=== PATIENT | female | born 1990 | race Caucasian/White ===

== ENCOUNTER → 2016-12-27 | Outpatient (CLI) | payer OTHER ==
[~2016-12-27] MED LIST: LAMO150 PO; LEXA20TA PO
[2016-12-27 10:42] LABS: BLOOD, URINE NEG (NEG); GLUCOSE,URINE NEG (NEG); HYALINE CAST, URINE 1 /lpf (RARE); KETONE, URINE NEG (NEG); NITRITE,URINE NEG (NEG); PH, URINE 6.5 (5.0-8.5); URINE COLOR COLORLESS (YELLW/STRAW)
[2016-12-27 10:44] LABS: AUTOMATED NEUTROPHIL # 5.8 TH/MM3 (1.8-7.7); BASOPHIL % 0.5 % (0.0-2.0); EOSINOPHIL # 0.2 TH/MM3 (0-0.4); EOSINOPHIL % 2.2 % (0.0-4.0); HEMATOCRIT 41.2 % (35.0-46.0); HEMO FLAGS DIFF FINAL; LYMPH % 27.1 % (9.0-44.0); LYMPHOCYTE # 2.5 TH/MM3 (1.0-4.8); MEAN CELL VOLUME 91.1 FL (80.0-100.0); MEAN CORPUSCULAR HEMOGLOBIN 30.3 PG (27.0-34.0); MEAN CORPUSCULAR HGB CONC 33.2 % (32.0-36.0); MONO % 7.4 % (0.0-8.0); NEUT % 62.8 % (16.0-70.0); PLATELET COUNT 366 TH/MM3 (150-450); RED BLOOD COUNT 4.52 MIL/MM3 (4.00-5.30); RED CELL DISTRIBUTION WIDTH 12.4 % (11.6-17.2); WHITE BLOOD COUNT 9.2 TH/MM3 (4.0-11.0)
[2016-12-27 11:07] LABS: ANION GAP 6 MEQ/L (5-15); BICARBONATE 29.5 MEQ/L (21.0-32.0); BLOOD UREA NITROGEN 14 MG/DL (7-18); CHLORIDE 102 MEQ/L (98-107); GLOMERULAR FILTRATION RATE 100 ML/MIN (>89); GLUCOSE,FASTING 81 MG/DL (74-99); POTASSIUM 3.8 MEQ/L (3.5-5.1); SODIUM (NA) 137 MEQ/L (136-145)
[2016-12-27 11:11] LABS: BHCG SCREEN QUALITATIVE LESS THAN 1 MIU/ML (0-5)
== END ==
LOC: CPRE 10:04
PROVIDERS: ATTEND Obstetrics & Gynecology
DX: Z01.812 Encounter for preprocedural laboratory examination (principal); R10.2 Pelvic and perineal pain
CPT/HCPCS: 36415; 80048; 81001; 84703; 85025; 86850; 86900; 86901

== ENCOUNTER → 2016-12-29 | Day surgery (SDC) | payer OTHER ==
--- NOTE | 2016-12-27 21:10 | MH ---
cc: LYNNE LI DATE OF ADMISSION: 12/29/2016 DATE OF : 1990 CHIEF COMPLAINT Persistent right lower quadrant pain, known history of endometriosis status post RSO. HISTORY OF PRESENT ILLNESS: The patient is a 26 year-old single white female, 0, with LMP 12/24/16 on Lexapro. She is scheduled for laparoscopy on morning. This will be her third laparoscopy. She is status post right salpingo-oophorectomy. She is known to have endometriosis. She has had a recurrence of pain in this region but it is non-cyclical. It is every day, although it is intermittent. It can be between 4 and 10. It is not worse when she is on her menses. It is not affected by bowel or bladder habits. There is no left-sided pain. She is currently on her menses now. She has been on Lupron much of her childhood for precocious puberty but never for endometriosis. She is not on any suppressive therapy with control pills at this time. She has had no recent colds or infections. 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 She would like to have an evaluation before she gets back to a new job and has difficulty taking time off for a laparoscopy. PHYSICAL EXAMINATION: She is a well-developed, well-nourished white female in no acute distress. She is 5'1". VITAL SIGNS: Blood pressure is 122/66. She has no thyroid enlargement. LUNGS: Clear. HEART: Heart rate is regular. ABDOMEN: Benign. She has no CVA tenderness. No lymphadenopathy. No tenderness elicited with external exam at the site of discomfort. No incisional hernias. Her perineum is estrogenized. Her vault is elevated. Cervix is nulliparous. Uterus is anteverted, mobile, nontender. The left ovary is unremarkable. There is no nodularity on rectovaginal exam. IMPRESSION: Persistent right lower quadrant tenderness, non-cyclic in nature in a patient known to have endometriosis and status post RSO. This could either be recurrence of atypical endometriosis or pelvic adhesions due to her previous surgeries. PLAN: The plan is to proceed with a diagnostic laparoscopy and remove adhesions or endometriosis, or document the absence of both. The risks, benefits, expectations have been described. She understands we may not find pathology to treat. She understands there may be pathology that we choose not to treat at the time. She understands that we could have problems with damage to bowel, bladder, blood vessels, complications of medication and anesthesia. She is scheduled for morning, has signed consents and desires to proceed. MD BETO Mejias/LANDRY /10:44 AM /8:46 PM
[~2016-12-29] VITALS: Ht 154.9 cm; Wt 68.2 kg
[~2016-12-29] MED LIST changes: +*morphine SULFATE 8 MG/ML PERIprocedure ONLY ONE; +ACETAMINOPHEN 1000 MG/100 ML 100 ML IV ONE; +BUPIVACAINE/EPINEPHRINE 0.5% 50 ML VIAL ONE; +CHLORHEXIDINE GLUCONATE 2 % 1 PACK (2 CLOTHS) TOPICAL PRN; +DEXAMETHASONE SOD PHOS 4 MG/ML VIAL ONE; +DO NOT ADM ANY ANTICOAGULANT DRUGS PRN; +FAMOTIDINE 20 MG/2 ML VIAL ONE; +INSULIN HUMAN REGULAR 1,000 UNITS/10 ML VIAL SQ PRN; +KETOROLAC TROMETHAMINE 30 MG/ML (IVP) VIAL IV PUSH PRN; +KETOROLAC TROMETHAMINE 30 MG/ML (IVP) VIAL ONE; +LACTATED RINGER'S 1000 ML INJ 1,000 ML IV ONE; +LACTATED RINGER'S 1000 ML IV PRN; -LAMO150 PO; +MEPERIDINE HCL 50 MG/ML VIAL IM PRN; +METOPROLOL TARTRATE 25 MG TAB PO PRN; +MIDAZOLAM HCL 2 MG/2 ML VIAL ONE; +NEOSTIGMINE 3 MG/3 ML SYR IV ONE; +ONDANSETRON HCL 4 MG/2 ML VIAL IV PUSH ONE; +ONDANSETRON HCL 4 MG/2 ML VIAL IV PUSH PRN; +POVIDONE IODINE 5% (ANTISEPSIS KIT) 4 APPLICATIONS EACH NARE PRN; +PROPOFOL 200 MG/20 ML AMP IV ONE; +SODIUM CHLORID 0.9% 500 ML IV PRN; +ceFAZolin 2 GM PREMIX 50 ML IV SCH; +oxyCODONE/ACETAMINOPHEN 5 MG/325 MG TAB ONE
[2016-12-29 10:17] VITALS: BP 92/50; PULSE 63; RESP 16; TEMP 98; O2SAT 100
--- NOTE | 2016-12-31 19:54 | MP ---
cc: LYNNE LI DATE OF SURGERY December 29, 2016 PREOPERATIVE DIAGNOSIS Recurrence of chronic non-cyclic right lower quadrant pain, history of prior right salpingo-oophorectomy and known endometriosis. POSTOPERATIVE DIAGNOSIS Mild right-sided endometriosis and otherwise normal pelvis. PROCEDURE Laparoscopic excision of endometriosis and uterosacral nerve ablation. ANESTHESIA General. SURGEON Dr. Li ASSISTANCE The OR staff. FINDINGS Examination under anesthesia revealed a nulliparous anteverted mobile, nontender uterus. The right adnexa has been surgically absent. The left adnexa was small. Rectovaginal exam revealed no nodularity or uterosacral thickening. Upon entering the abdominal cavity with the laparoscope liver edge, gallbladder and appendix were normal. Uterus is a normal size and contour. On the right the tube is cut and the right adnexa is missing. At the junction of the remaining portion of the tube and the cornua on the right there was some gunpowder blue endometriosis and this was excised. The left tube and ovary looked very normal and had good flow. The right uterosacral was easily identified independently from the ureter and it was transected in its entirety. There was no other obvious pathology or iatrogenic injury. The pneumoperitoneum was released under direct visualization, no bleeding. Sponge, instrument, needle count correct. PROCEDURE The patient was identified as Chip Taylor. Her permit was reviewed with her in holding. She was taken to the operating room, administered 1 gram of Ancef. Was placed under general anesthesia. Prepped and draped in the sterile fashion in dorsal supine position. A time-out was performed. A Uribe catheter was placed. Cervix was grasped with tenaculum and an acorn tenaculum inserted. Attention was directed to the abdomen. A 5 mm incision was made in the umbilicus and the scope and trocar were placed under direct visualization and systematic evaluation of the abdominal pelvic contents was performed with the findings as noted above. Two additional spots in the right and left lower quadrant was transilluminated infiltrated with lidocaine and then 5 mm trocar and sleeve placed and then systematic evaluation was performed and then the laparoscopic scissors were used to excise the endometriosis. The area was ___ with the monopolar cautery for hemostasis and then the monopolar cautery with the scissors were used to transect the uterosacral nerve and the uterosacral ligament on the right. The pneumoperitoneum was then released under direct visualization and then the incisions were closed with a simple stitch of Monocryl. The vaginal instrumentation was removed. She was placed in dorsal supine position, awoken and taken to the recovery room in stable condition. She is a good candidate for Lupron and will be discussed. Lynne Li MD PPC/EO /2:31 PM /7:37 PM
== END | disposition home or self-care (01) ==
LOC: HSDC 05:44
PROVIDERS: ATTEND Obstetrics & Gynecology
DX: R10.31 Right lower quadrant pain (principal); N80.9 Endometriosis, unspecified
CPT/HCPCS: 00840; 58662; 88305; J0131; J0690; J1100; J1885; J2250; J2270; J2405; J2710; J3010; J7120